=== PATIENT | male | born 1965 | race Caucasian/White ===

== ENCOUNTER → 2020-08-19 10:07 | Outpatient (CLI) | payer BC, SELFPAY ==
[2020-08-19 09:31] VITALS: BMI 29.8
[2020-08-19 10:09] LABS: Bacteria 0 SEEN /hpf (None Seen); Mucous, Urine 0 SEEN /hpf (<or=2+); Red Blood Cells-Urine 0 SEEN /hpf (0-5); Squamous Epithelial Cells - UA 0 SEEN /hpf (0-5); White Blood Cells 0 SEEN /hpf (0-5)
[2020-08-19 12:12] LABS: Color, Urine Straw (Yellow); Glucose, Dipstick Normal (Normal); Ketone-Dipstick Negative (Negative); Leukocyte Esterase-Dipstick Negative /ul (Negative); Nitrite-Dipstick Negative (Negative); Occult Blood-Urine Negative /ul (Negative); Protein-Dipstick Negative (Negative); Specific Gravity, Urine 1.005 (1.002-1.030); Urine Bilirubin Dipstick Negative (Negative); Urine Clarity Clear (Clear); Urine Urobilinogen Normal (Normal)
[2020-08-19 12:40] LABS: ALB/GLOB Ratio 1.1 RATIO (0.9-2.4); AST(SGOT) 20 U/L (15-37); Alanine Aminotransfer ALT/SGPT 46 U/L (16-61); Albumin, Serum 3.7 g/dL (3.2-5.0); Alkaline Phosphatase 60 U/L (45-117); Anion Gap 4 (5-15); BUN 14 mg/dL (7-18); BUN/Creat Ratio 14.4 RATIO (10-20); Calcium,Total 8.9 mg/dL (8.5-10.1); Chloride 102 mmol/L (98-107); Cholesterol 186 mg/dL (200); Creatinine, Serum 0.97 mg/dL (0.70-1.30); EST Glomerular Filtration Rate 85 mL/min (>60); Est Glom Filt Rate - Afr Amer 103 mL/min (>60); Globulin 3.5 g/dL (2.2-4.2); Glucose 91 mg/dL (74-106); High Density Lipoprotein 44 mg/dL; Potassium 4.8 mmol/L (3.5-5.1); Protein, Total 7.2 g/dL (6.4-8.2); Sodium Level 137 mmol/L (136-145); Triglycerides 189 mg/dL; Very Low Density Lipoprotein 38 mg/dL (5-40)
== END ==
PROVIDERS: PCP Family Medicine; Referring Provider Family Medicine; Visit Provider Family Medicine
DX: E78.5 Hyperlipidemia, unspecified (principal); R31.9 Hematuria, unspecified; I99.9 Unspecified disorder of circulatory system
CPT/HCPCS: 36415; 80053; 80061; 81001

== ENCOUNTER 2020-09-23 08:07 | Day surgery (SDC) | payer BC, SELFPAY ==
[2020-08-19 09:31] VITALS: BMI 29.8
[2020-09-23] VITALS (7 sets, daily range): BP systolic 104–128; BP diastolic 73–80; PULSE 59–72; RESP 16–18; TEMP 36.4–36.7; O2SAT 96–99; BMI 29.0
[2020-09-23] MEDS: Lactated Ringers 1,000 ML 100 ML IV (09:02)
--- NOTE | 2020-09-23 09:04 | H&P.OPEN ---
HPI - General HPI Narrative FARHANA SALAZAR, is a 55 M who presents for screening colonoscopy. The patient has never had a colonoscopy in the past. He denies any abdominal pain or blood in stool. He has no family history of colon cancer. [facility] Medical History (Updated 09/23/20 @ 09:[address] Corey Escalante MD) Back pain History of pneumonia Injury of head and neck Non-smoker Restless legs Seasonal allergies Shortness of breath on exertion Tinnitus Ulcer Wears glasses Home Medications NK 07/31/20 [History Last Taken Unknown] Allergy/AdvReac Type Severity Reaction Status Date / Time No Known Allergies Allergy Unverified 09/18/20 12:15 Family History Other Myocardial infarction Parkinsons disease Surgical History (Updated 09/18/20 @ 12:22 by Tavia Hui) History of appendectomy Social History (Updated 08/19/20 @ 10:[address] Hamzah Jenkins DO) Smoking Status: Never smoker alcohol intake: never substance use type: does not use what type of physical activity do you participate in: none Past Medical/Surgical History Planned Operation Planned Operative Procedure/s: cscope open access Previous Hospitalizations/Surgeries HX Hospitalizations: No Any Problems With Anesthesia: No You/Your Family Experience Fever (Hyperthermia) With Anes: No Cholinesterase deficiency: No Cardiovascular Hx Hypertension: No Respiratory Hx Sleep Apnea: No Hx Respiratory Tract Infection/Cold (presently): No Do You Snore Loudly (louder than talking or can be heard): Yes Do You Often Feel Tired/ Fatigued/ Sleepy Dring Daytime?: No Has Anyone Observed You Stop Breathing During Sleep?: No Result (for STOP score): Negative Smoking Status: Never smoker Neurological Does patient have nerve stimulator: No Reproduction : No Miscellaneous Recent Exposure to Contagious Disease: No Allergies No Known Allergies Allergy (Unverified 09/18/20 12:15) Discharge Is Pt Admitted From a Correction, or a Skilled Nursing: No After D/C, Where Do you Plan to Go: Return Home Vital Signs Vital Signs Vital Signs: 09/23/20 08:50 Temperature 97.8 F Temperature Source Temporal Pulse Rate 70 Respiratory Rate 16 Respiratory Pattern Normal Blood Pressure 128/80 H Blood Pressure Mean 96 Blood Pressure Source Monitor Blood Pressure Position Sitting Blood Pressure Location Left Arm Pulse Ox 99 Oxygen Delivery Method Room Air Physical Exam Const alert and oriented x3 Resp normal respiratory effort and normal air movement Cardio regular rate and regular rhythm GI soft to palpation, non-tender and non-distended Assessment & Plan Assessment/Plan (1) Screen for colon cancer: PLAN: 55-year-old male here for screening colonoscopy I explained endoscopy in detail to the patient. I explained the risks including but not limited to stroke or heart attack with anesthesia, perforation of the GI tract, bleeding, infection. I explained that any of these could necessitate further emergency surgery. The patient understands and all questions were answered sufficiently. The patient wishes to proceed with procedure. Corey Escalante MD Pager: [facility] [address] [place] [address] [address] [place] [address] Office: Surgery Risks - Colonoscopy Risks Include but are not Limited To: Risks include but are not limited to: Bleeding, perforation requiring further surgery, inability to complete colonoscopy requiring barium enema.
--- NOTE | 2020-09-23 09:42 | OP.COLON_ITS ---
Patient Name: Diego Gonzalez Procedure Date: 09/23/2020 9:10 AM Date of : 1965 Age: 55 Procedure: Colonoscopy Indications: Screening for colorectal malignant neoplasm Providers: Corey Escalante MD Referring MD: Corey Escalante MD Medicines: Monitored Anesthesia Care Patient Profile: This is a 55 year old male. Refer to note in patient chart for documentation of history and physical. Last Colonoscopy: none. The patient's first colonoscopy is today. Complications: No immediate complications. Procedure: Pre-Anesthesia Assessment: - Prior to the procedure, a History and Physical was performed, and patient medications and allergies were reviewed. The patient's tolerance of previous anesthesia was also reviewed. The risks and benefits of the procedure and the sedation options and risks were discussed with the patient. All questions were answered, and informed consent was obtained. Prior Anticoagulants: The patient has taken no previous anticoagulant or antiplatelet agents. After reviewing the risks and benefits, the patient was deemed in satisfactory condition to undergo the procedure. After I obtained informed consent, the scope was passed under direct vision. Throughout the procedure, the patient's blood pressure, pulse, and oxygen saturations were monitored continuously. The Colonoscope was introduced through the anus and advanced to the cecum, identified by appendiceal orifice and ileocecal valve. The colonoscopy was performed without difficulty. The patient tolerated the procedure well. The quality of the bowel preparation was good. Scope In: 9:22:13 AM Scope Withdrawal Time 0 hours 6 minutes 11 seconds Scope Out: 9:34:17 AM Total Procedure Duration Time 0 hours 12 minutes 4 seconds Findings: The entire examined colon appeared normal on direct and retroflexion views. Impression: - The entire examined colon is normal on direct and retroflexion views. - No specimens collected. Recommendation: - Discharge patient to home. - Resume previous diet. - Continue present medications. - Repeat colonoscopy in 10 years for screening purposes. Procedure Code(s): --- Professional --- 60574, Colonoscopy, flexible; diagnostic, including collection of specimen(s) by brushing or washing, when performed (separate procedure) Diagnosis Code(s): --- Professional --- Z12.11, Encounter for screening for malignant neoplasm of colon CPT copyright 2017 [employer]. All rights reserved. The codes documented in this report are preliminary and upon seat cover maker review may be revised to meet current compliance requirements. Corey Escalante MD 09/23/2020 9:42:20 AM This report has been signed electronically. Number of Addenda: 0 Note Initiated On: 09/23/2020 9:10 AM
--- NOTE | 2020-09-23 09:42 | OP.CCLET_ITS ---
09/23/2020 Hamzah Jenkins Re : Colonoscopy procedure for Diego Gonzalez Dear Dr. Jenkins This procedure was performed on Wednesday, September 23, 2020. My impressions and recommendations are as follows: Impressions : - The entire examined colon is normal on direct and retroflexion views. - No specimens collected. Recommendations : - Discharge patient to home. - Resume previous diet. - Continue present medications. - Repeat colonoscopy in 10 years for screening purposes. My findings are described in the full procedure note, which is enclosed. If I can be of further assistance, please feel free to contact me at Doctor phone number(s): , Work: . Sincerely, Corey Escalante MD 09/23/2020 9:42:20 AM This report has been signed electronically.
== END 2020-09-23 10:30 ==
LOC: EN 08:09 → AC 08:09
PROVIDERS: PCP Family Medicine; Referring Provider Surgery; Visit Provider Surgery
PROC: 0DJD8ZZ Inspection of Lower Intestinal Tract, Via Natural or Artificial Opening Endoscopic (ICD-10-PCS; CPT 45378; principal; 2020-09-23 09:10)
DX: Z12.11 Encounter for screening for malignant neoplasm of colon (principal); G25.81 Restless legs syndrome; J30.2 Other seasonal allergic rhinitis; Z87.01 Personal history of pneumonia (recurrent); Z20.822 Contact with and (suspected) exposure to COVID-19
CPT/HCPCS: 45378; 87426; C9803; J7120; J2405